=== PATIENT | female | born 1945 | race Caucasian/White ===

== ENCOUNTER 2018-05-31 11:31 | Day surgery (SDC) | payer MEDICARE ==
[2018-05-31] MEDS: NS 1,000 ML IV (11:45)
[2018-05-31] MEDS ORDERED: LIDOCAINE 2% MDV 20 ML VIAL As Ordered (12:32)
[2018-05-31] MEDS ORDERED: PROPOFOL 500 MG/50 ML VIAL As Ordered (12:33)
[2018-05-31] MEDS ORDERED: fentaNYL 100 MCG/2 ML INJECTION (J3010) As Ordered (12:33)
[2018-05-31 12:52] LABS: BEDSIDE GLUCOSE 147 MG/DL (83-110)
[2018-05-31] MEDS ORDERED: ePHEDrine SULFATE 25 MG/5 ML(5MG/ML) SYRINGE As Ordered (14:02)
== END 2018-05-31 14:10 | disposition home or self-care (01) ==
LOC: M OPP 11:31
DX: K64.8 Other hemorrhoids (principal); D12.0 Benign neoplasm of cecum; B37.81 Candidal esophagitis; K57.30 Diverticulosis of large intestine without perforation or abscess without bleeding; K29.70 Gastritis, unspecified, without bleeding; D50.9 Iron deficiency anemia, unspecified; R63.4 Abnormal weight loss; I10 Essential (primary) hypertension; E11.9 Type 2 diabetes mellitus without complications; M12.9 Arthropathy, unspecified; Z79.4 Long term (current) use of insulin; Z79.82 Long term (current) use of aspirin; Z79.891 Long term (current) use of opiate analgesic; Z79.899 Other long term (current) drug therapy; Z88.0 Allergy status to penicillin; Z88.8 Allergy status to other drugs, medicaments and biological substances; Z87.442 Personal history of urinary calculi; Z80.41 Family history of malignant neoplasm of ovary
CPT/HCPCS: 45385

== ENCOUNTER → 2019-11-11 | Outpatient (REF) | payer MEDICARE ==
[~2019-11-11] MED LIST: ADV250INH; ASPI81TA26 PO; CALC500T49 PO; CARV12.5; HUMA100I5; HYDR-3713; IRBE75TA5; JANU100T; LEVE1INJ5; METF-791; MONT10TA2; NASA1SPR NARES; OMEP-172; PROAAER10; ROSU10TA6; TERA5CAP3; VITA100018 PO; VITA100067 PO
== END ==
LOC: M LAB LCGH 15:55
PROVIDERS: ATTEND Physician Assistant
DX: L82.1 Other seborrheic keratosis (principal)

== ENCOUNTER → 2020-03-29 | Outpatient (REF) | payer MEDICARE ==
[~2020-03-29] MED LIST changes: +IRBE75TA4; -IRBE75TA5; -METF-791; +METF-838; -MONT10TA2; +MONT10TA4; -OMEP-172; +OMEP1CAP73
[2020-03-29 16:22] LABS: CREATININE, URINE 22.6 MG/DL; MALB URINE SIEMENS < 5.0 MG/L; MAU/CREAT RATIO 22.1 MCG/MG (0.0-30.0)
== END ==
LOC: M LAB REF 15:14
PROVIDERS: ATTEND Nurse Practitioner Family
DX: E11.9 Type 2 diabetes mellitus without complications (principal)

== ENCOUNTER → 2021-09-27 | Outpatient (CLI) | payer MEDICARE ==
[~2021-09-27] MED LIST changes: +MONT10TA10; -MONT10TA4
--- NOTE | 2021-09-27 14:33 | REP ---
INDICATION: ABNORMAL FINDING OF LUNG FIELD. COMPARISON: 09/26/2020, 08/04/2019, 07/27/2018 TECHNIQUE: Noncontrast images with coronal and sagittal reconstructions provided. FINDINGS: The right lung shows 8th Bety fissural nodule about 4 mm on image 54 anterior segment right upper lobe pleural based and another 4 mm nodule on image 42. This is unchanged 3 mm nodule on image 40 in the subpleural region also seen in the right upper lobe none of these have changed. Few tiny calcified granulomas are again seen. Pleural based the 3 mm lingular nodule on image 59 is stable. There is subpleural fibrotic and dependent atelectatic changes posterolaterally in the lower lobes some of this dependent atelectatic change bronchiectatic changes are noted. Some fibrotic changes in the lateral segment of the right middle lobe and inferior lingular segment again noted. No effusion or acute infiltrate or parenchymal mass no calcified pleural plaque there are sub cm AP window, prevascular, right paratracheal precarinal and subcarinal nodes but not of pathologic size no hilar, axillary or supraclavicular mass. Aorta shows some calcification but no aneurysm. The main, right and left pulmonary arteries are prominent within the mediastinum and that suggests some degree of pulmonary artery hypertension, presumably on the basis of COPD. Bone windows show sternum, manubrium, medial clavicles, visualized portions of scapula and shoulders with some degenerative changes but no destructive lesion or fracture. The ribs are intact. Marginal osteophytes throughout thoracic spine without compression fractures. The upper abdomen shows prominent splenic cyst unchanged and with couple of calcifications associated with it. The liver is unremarkable in the portion visible and only a portion of the gallbladder is included but unremarkable. Pancreas intact. Adrenal glands normal. Kidneys stable. IMPRESSION: Stable CT with multiple noncalcified 4 mm and smaller nodes as described. No new nodes. There is dependent atelectatic and fibrotic change bilaterally which is increased since previous study. No other new or significant finding or interval change. <Electronically signed by Bridger Le > 09/27/21 [id number]
== END ==
LOC: M RAD 12:35
PROVIDERS: ATTEND Internal Medicine Pulmonary Disease
DX: R91.8 Other nonspecific abnormal finding of lung field (principal)